=== PATIENT | female | born 1975 | race African-American/Black ===

== ENCOUNTER 2016-07-21 17:55 | Emergency (ER) | payer SELFPAY ==
[~2016-07-21] VITALS: Ht 175.3 cm; Wt 95.6 kg
[~2016-07-21 17:55] MED LIST: ANTI-DIARRHEA2 MG PO; CIPRO500 MG PO; IBUPROFEN800 MG PO; INDOCIN50 MG PO; NAPROSYN500 MG PO; NITROFURANTOIN100 M3 PO; OMEPRAZOLE40 M1 PO; PERCOCET 5/31 TABLET PO; PROMETHAZINE HC25 M1 PO; TYLENOL EXTRA500 MG PO; VALIUM5 MG PO
[2016-07-21 18:44] LABS: MCH 27.5 PG (29.0-34.0); MCHC 33.6 G/DL (30.0-36.0); MCV 81.8 FL (83-99); PLATELET COUNT 273 K/uL (156-360); RBC DIS.WIDTH-CV 13.5 % (11.8-14.6); RBC DIS.WIDTH-SD 39.8 % (39-53); WHITE BLOOD COUNT 10.9 K/uL (4.1-10.2)
[2016-07-21 19:01] LABS: CHLORIDE 103 mEq/L (99-109); POTASSIUM 3.9 mEq/L (3.7-5.4); SODIUM 138 mEq/L (136-147)
[2016-07-21 19:03] LABS: GLUCOSE 82 mg/dL (70-99)
[2016-07-21 19:04] LABS: ANION GAP 8 MEQ/L (2-14)
[2016-07-21 19:07] LABS: GFR ESTIMATE (CALCULATED) > 59 mL/min/
[2016-07-21 19:08] LABS: UREA NITROGEN (BUN) 11 mg/dL (9-23)
[2016-07-21 19:09] LABS: TROP-I INTERPRETATION NEGATIVE; TROPONIN-I < 0.01 ng/mL (0.0-0.30)
[2016-07-21] MEDS ORDERED: MEDROL DOSEPAK4 MG PO (20:36)
[2016-07-21] MEDS ORDERED: FLEXERIL10 MG PO (20:36)
[2016-07-21 20:58] VITALS: BP 99/65
== END 2016-07-21 21:02 | disposition home or self-care (01) ==
LOC: EME 17:55
DX: M94.0 Chondrocostal junction syndrome [Tietze] (principal); R07.89 Other chest pain
CPT/HCPCS: 71020; 80048; 84484; 85027; 93005; 99281; 99285; J7512

== ENCOUNTER 2016-11-09 22:17 | Emergency (ER) | payer SELFPAY ==
[~2016-11-09] VITALS: Ht 175.3 cm; Wt 94.1 kg
[~2016-11-09 22:17] MED LIST changes: +FLEXERIL10 MG PO; +MEDROL DOSEPAK4 MG PO
[2016-11-09 23:30] LABS: BASOPHIL COUNT 0.1 K/uL (0-0.1); EOSINOPHIL (%) 3.2 % (0-5); EOSINOPHIL COUNT 0.3 K/uL (0-0.3); HEMATOCRIT 35.3 % (36.0-46.0); IMMATURE GRANULOCYTE (%) 0.2 % (0.0-0.7); INSTRUMENT ABS NEUTROPHIL CT 4.5 K/uL; LYMPHOCYTE COUNT 3.7 K/uL (1.0-2.8); MCH 26.9 PG (29.0-34.0); MCHC 31.7 G/DL (30.0-36.0); MCV 84.7 FL (83-99); MEAN PLAT.VOLUME 11.3 uM^3 (9.5-12.4); MONOCYTE COUNT 0.5 K/uL (0-0.8); NEUTROPHIL COUNT 4.5 K/uL (1.8-6.4); PLATELET COUNT 293 K/uL (156-360); RBC DIS.WIDTH-CV 13.2 % (11.8-14.6); RBC DIS.WIDTH-SD 40.7 % (39-53); RED BLOOD COUNT 4.17 M/uL (3.80-5.20); WHITE BLOOD COUNT 9.1 K/uL (4.1-10.2)
[2016-11-09 23:41] LABS: CHLORIDE 108 mEq/L (99-109); POTASSIUM 3.6 mEq/L (3.7-5.4); SODIUM 138 mEq/L (136-147)
[2016-11-09 23:42] LABS: GLUCOSE 77 mg/dL (70-99)
[2016-11-09 23:44] LABS: ANION GAP 6 MEQ/L (2-14)
[2016-11-09 23:46] LABS: GFR ESTIMATE (CALCULATED) > 59 mL/min/
[2016-11-09 23:47] LABS: UREA NITROGEN (BUN) 10 mg/dL (9-23)
[2016-11-09 23:50] LABS: TROP-I INTERPRETATION NEGATIVE; TROPONIN-I < 0.01 ng/mL (0.0-0.30)
[2016-11-09 23:59] LABS: QUANTITATIVE HCG < 4.0 MIU/ML
[2016-11-10] MEDS ORDERED: NORCO 5/3251 TABLET PO (00:55)
[2016-11-10] MEDS ORDERED: VALIUM5 MG PO (00:55)
[2016-11-10 01:16] VITALS: BP 116/52
== END 2016-11-10 01:17 | disposition home or self-care (01) ==
LOC: EME 22:17
PROVIDERS: Personal Emergency Response Attendant
DX: R07.89 Other chest pain (principal); M62.830 Muscle spasm of back; I25.2 Old myocardial infarction
CPT/HCPCS: 71020; 80048; 84484; 84702; 85025; 93005; 99281; 99285

== ENCOUNTER 2017-04-13 09:14 | Emergency (ER) | payer BC ==
[~2017-04-13] VITALS: Ht 175.3 cm; Wt 94.7 kg
[~2017-04-13 09:14] MED LIST changes: +NORCO 5/3251 TABLET PO
[2017-04-13 10:23] LABS: BASOPHIL COUNT 0.1 K/uL (0-0.1); EOSINOPHIL (%) 0.4 % (0-5); HEMATOCRIT 37.1 % (36.0-46.0); IMMATURE GRANULOCYTE (%) 0.4 % (0.0-0.7); INSTRUMENT ABS NEUTROPHIL CT 8.4 K/uL; LYMPHOCYTE COUNT 1.5 K/uL (1.0-2.8); MCH 26.8 PG (29.0-34.0); MCHC 32.3 G/DL (30.0-36.0); MCV 82.8 FL (83-99); MEAN PLAT.VOLUME 11.1 uM^3 (9.5-12.4); MONOCYTE (%) 7.6 % (3-12); MONOCYTE COUNT 0.8 K/uL (0-0.8); NEUTROPHIL COUNT 8.4 K/uL (1.8-6.4); PLATELET COUNT 269 K/uL (156-360); RBC DIS.WIDTH-CV 13.5 % (11.8-14.6); RBC DIS.WIDTH-SD 40.9 % (39-53); RED BLOOD COUNT 4.48 M/uL (3.80-5.20); WHITE BLOOD COUNT 10.9 K/uL (4.1-10.2)
[2017-04-13 10:29] LABS: INFLUENZA A VIRAL ANTIGEN NEGATIVE; INFLUENZA B VIRAL ANTIGEN NEGATIVE
[2017-04-13 10:36] LABS: CHLORIDE 104 mEq/L (99-109); POTASSIUM 3.6 mEq/L (3.7-5.4); SODIUM 138 mEq/L (136-147)
[2017-04-13 10:37] LABS: GLUCOSE 85 mg/dL (70-99)
[2017-04-13 10:39] LABS: ANION GAP 8 MEQ/L (2-14)
[2017-04-13 10:41] LABS: GFR ESTIMATE (CALCULATED) > 59 mL/min/
[2017-04-13 10:42] LABS: UREA NITROGEN (BUN) 10 mg/dL (9-23)
[2017-04-13 11:03] LABS: INTERNAL CONTROL VALID? YES; MONOSPOT (MONONUCLEOSIS SEROL) NEGATIVE
[2017-04-13 11:59] LABS: QUANTITATIVE HCG < 4.0 MIU/ML
[2017-04-13 12:17] LABS: D-DIMER ELISA < 150.00 ng/mLDDU (<230)
[2017-04-13] MEDS ORDERED: MOTRIN800 MG PO (12:49)
[2017-04-13 13:08] VITALS: BP 115/72
== END 2017-04-13 13:10 | disposition home or self-care (01) ==
LOC: EME 09:14
PROVIDERS: Emergency Medicine
DX: J40 Bronchitis, not specified as acute or chronic (principal); J06.9 Acute upper respiratory infection, unspecified; R07.0 Pain in throat; R11.0 Nausea; R42 Dizziness and giddiness; Z90.49 Acquired absence of other specified parts of digestive tract
CPT/HCPCS: 70360; 71010; 80048; 84702; 85025; 85379; 86308; 87502; 87651 90; 93005; 99281; 99284